=== PATIENT | male | born 1995 | race Asian ===

== ENCOUNTER 2017-09-23 01:17 | Emergency (ER) | payer OTHER ==
[~2017-09-23] VITALS: Ht 170.2 cm; Wt 73.9 kg
[2017-09-23 01:23] VITALS: TEMP 36.7; Ht 170.2 cm; Wt 73.9 kg
[2017-09-23] MEDS ORDERED: PROPARACAINE HCL 0.5% OP SOLN 15 ML BTL ONE (01:36)
[2017-09-23] MEDS ORDERED: CIPROFLOXACIN HCL 0.3% OP SOLN 2.5 ML BTL OP STA (01:40)
[2017-09-23 01:48] VITALS: BP 131/81; PULSE 50; O2SAT 96
--- NOTE | 2017-09-23 01:49 | EMERGENCY ROOM VISIT NOTE ---
ED Visit Note First contact with patient: 01:29 CHIEF COMPLAINT: Eye pain HISTORY OF PRESENT ILLNESS: This 22-year-old patient presents to the emergency department complaining of pain in the right eye pain after removing his contact tonight. There has been a constant moderate pain and irritation, redness and tearing in the eye. There is a mild blurring of vision at times and light bothers the eye. The vision has not been decreased over all. The patient does wear contacts. The patient rates the pain as irritating and 5/ 10. The patient has not had previous injuries to this eye. Tetanus shot is up to date. REVIEW OF SYSTEMS: A 6 system review of systems was completed with positives and pertinent negatives listed in the HPI. ALLERGIES:none MEDICATIONS:none PMH: none SOCIAL HISTORY: no drug use PHYSICAL EXAM: Vital Signs: Reviewed Nurse's notes, vital signs stable. Visual acuity reviewed from nursing. GENERAL: This is a pleasant male, in no acute distress, but who is uncomfortable from the eye problem. Well-developed well- nourished. EYES: The pupils are equal round and reactive to light and accommodation. EOMs are full and without tenderness. There is discharge of clear tears from the right eye which is injected. There is no foreign body visible under the eyelid even after lid eversion. Funduscopic exam reveals no hemorrhages, papilledema, or other abnormalities. No foreign body was seen embedded in the cornea under slit lamp exam. The cornea was clear and no hyphema was seen. Fluorescein uptake was observed with ultraviolet light significant for a corneal abrasion 6:00. EMERGENCY DEPARTMENT COURSE: I examined the patient. Alcaine 2 drops were placed in the patient's right eye. A slit lamp exam was performed as above. Ciloxan two drops was placed in the patient's right eye. The patient was discharged home in good condition. DIAGNOSIS: Corneal abrasion of the right eye DISCHARGE INSTRUCTIONS AND TREATMENT: as below Allergies Coded Allergies: No Known Allergies (Unverified , 06/18/16) Vital Signs Date Time Temp Pulse Resp B/P (MAP) Pulse Ox O2 Delivery O2 Flow Rate FiO2 09/23/17 01:23 36.7 45 16 143/89 97 Room Air Medications Administered Medications (Trade) Dose Ordered Sig/Berna Route Start Time Stop Time Status Last Admin Dose Admin Proparacaine HCl (Alcaine 0.5% Oph Soln) 225 drops STK-MED ONCE .ROUTE 09/23/17 01:36 09/23/17 01:37 DC 09/23/17 01:37 225 DROPS Ciprofloxacin HCl (Ciprofloxacin 0.3% Op Soln) 1 drops NOW STAT OP 09/23/17 01:40 09/23/17 01:41 DC 09/23/17 01:46 1 DROPS Departure Information Impression Primary Impression: Right corneal abrasion Dispostion Home / Self-Care Condition GOOD Referrals Robbin Valladares D.O. Forms WORK / SCHOOL INSTRUCTIONS, HOME CARE DOCUMENTATION FORM, IMPORTANT VISIT INFORMATION Patient Instructions Corneal Injury, [facility] Additional Instructions Use Ciloxan two drops in right eye every two hours while awake for two days; then two drops every four hours while awake for 5 days. Use Ibuprofen 600 mg or Tylenol 1000 mg every 6 hours as needed for pain ( Maximum 3000 mg Tylenol in 24 hr period). If you wear contacts, no contacts for 1 week. Follow-up with panel machine tender in 2-3 days if symptoms persist. Return to the ED for increasing pain or changes in vision.
== END 2017-09-23 01:48 | disposition home or self-care (01) ==
LOC: C.EDB 01:18 → C.EDC 01:48
DX: S05.01XA Injury of conjunctiva and corneal abrasion without foreign body, right eye, initial encounter (principal); X58.XXXA Exposure to other specified factors, initial encounter